=== PATIENT | male | born 1960 | race Caucasian/White ===

== ENCOUNTER 2022-01-04 08:13 | Outpatient (CLI) | payer BC ==
[2022-01-04 10:18] LABS: #Eosinphils 0.1 10x3/uL (0.0-0.5); #Monocytes 0.4 10x3/uL (0.0-1.1); %Basophils 0.2 % (0.0-2.0); %Eosinophils 1.7 % (0.0-6.0); %Lymphocytes 44.2 % (18.0-47.0); %Monocytes 10.9 % (0.0-10.0); Hemoglobin 15.9 g/dL (13.5-17.5); Mean Corpuscular HGB CONC 33.9 g/dL (32.0-36.0); Mean Corpuscular Hemoglobin 31.7 pg (27.0-33.0); Mean Corpuscular Volume 93.4 fl (81.2-95.1); Mean Platelet Volume 10.3 fl (7.4-10.4); Platelet Count 186 10x3/uL (150-450); RBC Distribution Width 13.5 % (11.5-14.5); Red Blood Cell (RBC) Count 5.02 10x6/uL (4.32-5.72)
[2022-01-04 10:21] LABS: #Neutrophils 1.7 10x3/uL (1.5-8.4)
== END 2022-01-04 08:14 | disposition home or self-care (01) ==
LOC: LABBT 08:13
PROVIDERS: ATTEND Orthopaedic Surgery Hand Surgery
DX: Z01.818 Encounter for other preprocedural examination (principal); M72.0 Palmar fascial fibromatosis [Dupuytren]; Z20.822 Contact with and (suspected) exposure to COVID-19
CPT/HCPCS: 85025; 93005; 93010; U0003; U0005

== ENCOUNTER 2022-01-06 07:29 | Day surgery (SDC) | payer BC ==
[2022-01-04 12:40] VITALS: BMI 22.4
[2022-01-06] MEDS ORDERED: Midazolam HCl 2 mg/2 ml Vial ONE (10:03)
[2022-01-06] MEDS ORDERED: fentaNYL Citrate/PF 100 MCG/2 ML SYRINGE ONE (10:03)
[2022-01-06] MEDS ORDERED: Neomycin-Polymyxin 1 ML AMP ONE (10:09)
[2022-01-06] MEDS ORDERED: Betamet Acet/Betamet Na Ph 30 MG/5 ML VIAL ONE (10:09)
[2022-01-06] MEDS ORDERED: Bupivacaine PF 0.5% 30 ML VIAL ONE (10:09)
[2022-01-06] MEDS ORDERED: Bacitracin Zinc Ointment 30 gm TUBE ONE (10:09)
[2022-01-06] MEDS ORDERED: CEFAZOLIN 2 GM VIAL ONE (10:23)
[2022-01-06] MEDS ORDERED: Sodium Chloride 0.9% 100 ML ONE (10:23)
[2022-01-06] MEDS ORDERED: Ondansetron PF 4 MG/2 ML Vial ONE (10:32)
[2022-01-06] MEDS ORDERED: Glycopyrrolate 0.2 MG/ML 5 ML SYRINGE ONE (10:32)
[2022-01-06] MEDS ORDERED: PROPOFOL 200 MG/20 ML VIAL ONE (10:32)
[2022-01-06] MEDS ORDERED: Lidocaine 1% PF 5 ML VIAL ONE (10:32)
[2022-01-06] MEDS ORDERED: Ketorolac Tromethamine 30 MG/ML VIAL ONE (10:32)
[2022-01-06] MEDS ORDERED: Dexamethasone 20 MG/5 ML VIAL ONE (10:32)
[2022-01-06] MEDS ORDERED: Propofol 500 MG/50 ML VIAL ONE (11:04)
== END 2022-01-06 14:22 | disposition home or self-care (01) ==
LOC: SDC 07:29
PROVIDERS: ATTEND Orthopaedic Surgery Hand Surgery
PROC: 0JNJ0ZZ Release Right Hand Subcutaneous Tissue and Fascia, Open Approach (ICD-10-PCS; principal; 2022-01-06)
PROC: 0LN70ZZ Release Right Hand Tendon, Open Approach (ICD-10-PCS; principal; 2022-01-06)
DX: M72.0 Palmar fascial fibromatosis [Dupuytren] (principal); Z79.899 Other long term (current) drug therapy
CPT/HCPCS: 88304; J0702; J1100; J1885; J2250; J2405; J2704; J3490; S0020

== ENCOUNTER 2022-02-08 14:59 | Outpatient (CLI) | payer BC | END 2022-02-08 15:00 | disposition home or self-care (01) | LOC: ULT 14:59 | PROVIDERS: ATTEND Family Medicine | DX: M79.641 Pain in right hand (principal) | CPT/HCPCS: 76999 ==

== ENCOUNTER 2025-07-28 08:07 | Outpatient (CLI) | payer BC | END 2025-07-28 08:08 | disposition home or self-care (01) | LOC: SCSMRI 08:07 | PROVIDERS: ATTEND Family Medicine | DX: S89.92XD Unspecified injury of left lower leg, subsequent encounter (principal); S83.242A Other tear of medial meniscus, current injury, left knee, initial encounter; M25.462 Effusion, left knee; M24.19 Other articular cartilage disorders, other specified site; R60.0 Localized edema ==